=== PATIENT | male | born 1975 | race Two or more races ===

== ENCOUNTER 2017-05-05 07:26 | Outpatient (CLI) | payer OTHER | END 2017-05-05 07:54 | disposition home or self-care (01) | LOC: LAB 07:26 | DX: Z80.3 Family history of malignant neoplasm of breast (principal); Z80.42 Family history of malignant neoplasm of prostate; D70.8 Other neutropenia; D70.2 Other drug-induced agranulocytosis; I10 Essential (primary) hypertension; B27.90 Infectious mononucleosis, unspecified without complication; D50.8 Other iron deficiency anemias; D51.8 Other vitamin B12 deficiency anemias; E11.9 Type 2 diabetes mellitus without complications; E55.9 Vitamin D deficiency, unspecified; K90.89 Other intestinal malabsorption; E78.2 Mixed hyperlipidemia; E03.8 Other specified hypothyroidism; R97.0 Elevated carcinoembryonic antigen [CEA] ==

== ENCOUNTER 2018-05-05 08:23 | Outpatient (CLI) | payer OTHER | END 2018-05-05 08:52 | disposition home or self-care (01) | LOC: LAB 08:23 | DX: D70.8 Other neutropenia (principal); D70.2 Other drug-induced agranulocytosis; I10 Essential (primary) hypertension; E11.9 Type 2 diabetes mellitus without complications; E55.9 Vitamin D deficiency, unspecified; K90.89 Other intestinal malabsorption; E78.2 Mixed hyperlipidemia; E03.8 Other specified hypothyroidism; R97.0 Elevated carcinoembryonic antigen [CEA]; Z80.3 Family history of malignant neoplasm of breast; Z80.42 Family history of malignant neoplasm of prostate ==

== ENCOUNTER → 2019-07-19 10:18 | Outpatient (CLI) | payer OTHER | END | disposition home or self-care (01) | LOC: LAB 10:18 | PROVIDERS: ATTEND Internal Medicine Hematology & Oncology | DX: E78.2 Mixed hyperlipidemia (principal); Z80.3 Family history of malignant neoplasm of breast; Z80.42 Family history of malignant neoplasm of prostate; D70.2 Other drug-induced agranulocytosis; I10 Essential (primary) hypertension; B27.90 Infectious mononucleosis, unspecified without complication; D50.8 Other iron deficiency anemias; D51.8 Other vitamin B12 deficiency anemias; E11.9 Type 2 diabetes mellitus without complications; K90.89 Other intestinal malabsorption; E03.8 Other specified hypothyroidism; R97.0 Elevated carcinoembryonic antigen [CEA]; R97.8 Other abnormal tumor markers ==

== ENCOUNTER → 2020-09-25 09:51 | Outpatient (CLI) | payer OTHER | END | disposition home or self-care (01) | LOC: LAB 09:51 | PROVIDERS: ATTEND Internal Medicine Hematology & Oncology | DX: D50.8 Other iron deficiency anemias (principal); I10 Essential (primary) hypertension; R97.0 Elevated carcinoembryonic antigen [CEA]; R97.8 Other abnormal tumor markers; E55.9 Vitamin D deficiency, unspecified; Z80.3 Family history of malignant neoplasm of breast; Z80.42 Family history of malignant neoplasm of prostate; D70.2 Other drug-induced agranulocytosis; D70.8 Other neutropenia; B27.90 Infectious mononucleosis, unspecified without complication; D51.3 Other dietary vitamin B12 deficiency anemia ==

== ENCOUNTER 2021-01-10 07:15 | Outpatient (CLI) | payer OTHER | END 2021-01-10 07:16 | disposition home or self-care (01) | LOC: NUCLEAR 07:15 | PROVIDERS: ATTEND Internal Medicine Hematology & Oncology | DX: D70.8 Other neutropenia (principal); D70.2 Other drug-induced agranulocytosis; B27.90 Infectious mononucleosis, unspecified without complication; M19.09 Primary osteoarthritis, other specified site; D51.3 Other dietary vitamin B12 deficiency anemia | CPT/HCPCS: 78315; A9503 ==

== ENCOUNTER → 2021-08-07 08:29 | Outpatient (CLI) | payer OTHER | END | disposition home or self-care (01) | LOC: LAB 08:29 | PROVIDERS: ATTEND Internal Medicine Hematology & Oncology | DX: D50.8 Other iron deficiency anemias (principal); I10 Essential (primary) hypertension; R74.02 Elevation of levels of lactic acid dehydrogenase [LDH]; K76.89 Other specified diseases of liver; E78.2 Mixed hyperlipidemia; E03.8 Other specified hypothyroidism; R97.0 Elevated carcinoembryonic antigen [CEA]; R97.8 Other abnormal tumor markers; R97.20 Elevated prostate specific antigen [PSA]; Z80.3 Family history of malignant neoplasm of breast; Z80.42 Family history of malignant neoplasm of prostate; D70.8 Other neutropenia; D70.2 Other drug-induced agranulocytosis; B27.90 Infectious mononucleosis, unspecified without complication; D51.3 Other dietary vitamin B12 deficiency anemia; M19.90 Unspecified osteoarthritis, unspecified site ==

== ENCOUNTER 2022-01-28 07:25 | Outpatient (CLI) | payer OTHER | END 2022-01-28 09:12 | disposition home or self-care (01) | LOC: LAB 07:25 | PROVIDERS: ATTEND Internal Medicine Hematology & Oncology | DX: D50.8 Other iron deficiency anemias (principal); I10 Essential (primary) hypertension; R74.02 Elevation of levels of lactic acid dehydrogenase [LDH]; K76.89 Other specified diseases of liver; R70.0 Elevated erythrocyte sedimentation rate; E55.9 Vitamin D deficiency, unspecified; E78.2 Mixed hyperlipidemia; E03.8 Other specified hypothyroidism; R97.0 Elevated carcinoembryonic antigen [CEA]; R97.8 Other abnormal tumor markers; R97.20 Elevated prostate specific antigen [PSA] ==

== ENCOUNTER 2023-01-27 07:13 | Outpatient (CLI) | payer OTHER ==
[2023-01-27 09:10] LABS: HEMOGLOBIN 14.1 g/dL (13-16.00); MEAN CELL VOLUME 87.9 fL (80.0-100.00); MEAN CORPUSCULAR HEMOGLOBIN 29.5 pg (27.00-32.0); MEAN CORPUSCULAR HGB CONC 33.6 g/dl (32.0-36.0); PLATELET COUNT 226 K/uL (150-450); RED BLOOD COUNT 4.78 M/uL (4.00-6.00); RED CELL DISTRIBUTION WIDTH 12.8 % (11.5-14.5)
[2023-01-27 10:08] LABS: % SATURACION 34.1 % (20-50); ALBUMIN 4.2 gm/dL (3.4-5.0); BILIRUBIN TOTAL 0.71 mg/dL (0.3-1.2); CALCIUM 9.4 mg/dL (8.5-10.1); CHOL HDL RATIO 2.9 (0-5.0); CREATININE SERUM 0.88 mg/dL (0.70-1.30); FERRITIN 180.5 NG/ML (26-388); GFR 92.04; GLOBULINA 3.1 G/DL (2.4-3.5); POTASSIUM 4.84 mEq/L (3.5-5.1); TOTAL PROTEIN 7.3 gm/dL (6.4-8.2); TSH 0.969 uIU/mL (0.358-3.74)
[2023-01-27 10:19] LABS: ERYTHROCYTE SEDIMENTATION RATE < 1 mm/hr
[2023-01-27 12:57] LABS: FOLIC ACID 16.27 ng/ml (4.78-20); VITAMIN D3 25 HYDROXY 37.92 ng/ml (30-120)
== END 2023-01-27 07:39 | disposition home or self-care (01) ==
LOC: LAB 07:13
PROVIDERS: ATTEND Internal Medicine Hematology & Oncology
DX: D50.8 Other iron deficiency anemias (principal); I10 Essential (primary) hypertension; R74.02 Elevation of levels of lactic acid dehydrogenase [LDH]; K76.89 Other specified diseases of liver; R70.0 Elevated erythrocyte sedimentation rate; E55.9 Vitamin D deficiency, unspecified; E78.2 Mixed hyperlipidemia; E03.8 Other specified hypothyroidism; R97.0 Elevated carcinoembryonic antigen [CEA]; R97.8 Other abnormal tumor markers; R97.20 Elevated prostate specific antigen [PSA]; Z80.3 Family history of malignant neoplasm of breast; Z80.42 Family history of malignant neoplasm of prostate; D70.2 Other drug-induced agranulocytosis; B27.90 Infectious mononucleosis, unspecified without complication; D51.3 Other dietary vitamin B12 deficiency anemia; M19.90 Unspecified osteoarthritis, unspecified site

== ENCOUNTER 2024-03-05 08:32 | Outpatient (CLI) | payer OTHER ==
[2024-03-05 09:33] LABS: HEMATOCRIT 44.1 % (39.0-48.0); MEAN CELL VOLUME 87.2 fL (80.0-100.00); MEAN CORPUSCULAR HEMOGLOBIN 29.7 pg (27.00-32.0); PLATELET COUNT 222 K/uL (150-450); RED BLOOD COUNT 5.06 M/uL (4.00-6.00); RED CELL DISTRIBUTION WIDTH 13.3 % (11.5-14.5)
[2024-03-05 09:59] LABS: ERYTHROCYTE SEDIMENTATION RATE < 1 mm/hr
[2024-03-05 10:47] LABS: % SATURACION 37.5 % (20-50); ALBUMIN 4.3 gm/dL (3.4-5.0); BILIRUBIN TOTAL 0.75 mg/dL (0.3-1.2); CALCIUM 9.5 mg/dL (8.5-10.1); CREATININE SERUM 0.92 mg/dL (0.70-1.30); GFR 87.08; GLOBULINA 3.2 G/DL (2.4-3.5); POTASSIUM 4.92 mEq/L (3.5-5.1); T4 FREE 1.01 NG/ML (0.76-1.46); TOTAL PROTEIN 7.5 gm/dL (6.4-8.2); TSH 0.887 uIU/mL (0.358-3.74)
[2024-03-05 11:31] LABS: FOLIC ACID 15.81 ng/ml (4.78-20); VITAMIN D3 25 HYDROXY 35.67 ng/ml (30-120)
== END 2024-03-05 08:33 | disposition home or self-care (01) ==
LOC: LAB 08:32
PROVIDERS: ATTEND Internal Medicine Hematology & Oncology
DX: D50.8 Other iron deficiency anemias (principal); I10 Essential (primary) hypertension; R74.02 Elevation of levels of lactic acid dehydrogenase [LDH]; K76.89 Other specified diseases of liver; E78.2 Mixed hyperlipidemia; E03.8 Other specified hypothyroidism; R97.0 Elevated carcinoembryonic antigen [CEA]; Z80.3 Family history of malignant neoplasm of breast; Z80.42 Family history of malignant neoplasm of prostate; D70.8 Other neutropenia; D70.2 Other drug-induced agranulocytosis; B27.90 Infectious mononucleosis, unspecified without complication; M19.90 Unspecified osteoarthritis, unspecified site